=== PATIENT | female | born 1985 | race Caucasian/White ===

== ENCOUNTER 2023-03-01 14:15 | Emergency (ER) | payer SELFPAY ==
[2023-03-01] VITALS (9 sets, daily range): BP systolic 118–163; BP diastolic 59–93
[~2023-03-01] VITALS: Ht 167.6 cm; Wt 78.4 kg
[2023-03-01 15:40] LABS: URINE BILIRUBIN - DIPSTICK Negative (NEGATIVE); URINE BLOOD DIPSTICK Large (NEGATIVE); URINE GLUCOSE - DIPSTICK Negative (NEGATIVE); URINE KETONE 40 mg/dL (NEGATIVE); URINE LEUK ESTERASE Negative (NEGATIVE); URINE NITRITE - DIPSTICK Negative (Negative); URINE PH >=9.0 (4.5-8.0); URINE PROTEIN - DIPSTICK 30 mg/dL (NEG-TRACE); URINE UROBILINOGEN - DIPSTICK 0.2 E.U./dL (0.2)
[2023-03-01 15:41] LABS: URINE COLOR Yellow
[2023-03-01 15:43] LABS: URINE EPITHELIAL CELLS FEW EPI/hpf (0-FEW); URINE MUCUS FEW hpf (NONE-FEW)
[2023-03-01 16:57] LABS: BASO% 0.6 % (0-3); EOS% 0.3 % (0-8); HEMOGLOBIN 11.4 g/dl (12.0-16.0); IMMATURE GRANULOCYTES 0.3 % (0.0-5.0); LYMPH% 13.4 % (15-41); MEAN CELL VOLUME 74.8 fL CALC (80.0-100.0); MEAN CORPUSCULAR HGB 23.7 pG CALC (26.0-32.0); MEAN CORPUSCULAR HGB CONC 31.7 g/dL CAL (32.0-36.0); MONO% 12.2 % (2-13); NEUT# 2.52 thou/uL (2.00-7.15); NEUT% 73.2 % (42-76); RED BLOOD COUNT 4.81 mill/uL (4.20-5.60); RED CELL DISTRI WIDTH 15.1 % (11.5-15.5)
[2023-03-01 17:19] LABS: ALKALINE PHOSPHATASE 73 u/l (38-126); ANION GAP 17 (6-22 (CALC)); BILIRUBIN, TOTAL 0.5 mg/dL (0.02-1.3); BUN 8 mg/dL (7-17); BUN/CREATININE RATIO 11 (12-20 (CALC)); CARBON DIOXIDE 20 mmol/l (22-30); CHLORIDE 106 mmol/l (95-108); CREATININE 0.7 mg/dL (0.5-1.0); GFR FOR AFR.AMER. > 60 ML/MIN (>=60 (CALC)); GFR OTHER RACES > 60 ML/MIN (>=60 (CALC)); LIPASE 32 u/l (23-300); POTASSIUM 3.5 mmol/l (3.5-5.1); SGOT/AST 27 u/l (14-36); SODIUM 140 mmol/l (137-146); TOTAL PROTEIN 7.9 g/dL (6.3-8.2)
[2023-03-01] MEDS ORDERED: LORTAB 5/3255 MG PO (19:35)
[2023-03-01] MEDS ORDERED: TORADOL PO (19:35)
[2023-03-01] MEDS ORDERED: ZOFRAN4 MG/TAB PO (19:35)
[2023-03-01] MEDS ORDERED: TAM75CAP PO (19:37)
== END 2023-03-01 20:06 | disposition home or self-care (01) | DRG 392 ==
LOC: ED 14:15
PROVIDERS: Family Medicine; Nurse Practitioner
DX: R10.30 Lower abdominal pain, unspecified (principal); R05.9 Cough, unspecified; R68.83 Chills (without fever); Z87.442 Personal history of urinary calculi; Z20.822 Contact with and (suspected) exposure to COVID-19